=== PATIENT | female | born 1965 | race Caucasian/White ===

== ENCOUNTER 2018-03-10 12:24 | Outpatient (CLI) | payer BC | END 2018-03-10 12:25 | disposition home or self-care (01) | LOC: BICMRI 12:24 | PROVIDERS: ATTEND Psychiatry & Neurology Neurology | DX: G35 Multiple sclerosis (principal); M50.223 Other cervical disc displacement at C6-C7 level; R93.7 Abnormal findings on diagnostic imaging of other parts of musculoskeletal system; G93.9 Disorder of brain, unspecified; R90.82 White matter disease, unspecified; R60.0 Localized edema; Z98.890 Other specified postprocedural states | CPT/HCPCS: 70551; 70553; 72156; 72157 ==

== ENCOUNTER 2018-04-29 09:52 | Outpatient (CLI) | payer BC ==
--- NOTE | 2018-04-29 15:21 | CT ---
CT CERVICAL SPINE WITHOUT CONTRAST: Date: 04/29/18 HISTORY: Crushed disc on 04/26/18. Patient had surgery. Evaluate for postoperative change. COMPARISON: None. FINDINGS: There is an anterior fusion plate with transvertebral body screw at C5 and C6. No perihardware lucenc y. Disc prosthesis at C5-C6 appears to be appropriately positioned. There is mild straightening of th e normal cervical lordosis. No evidence of a cervical spine fracture. Lateral masses of C1 and C2, as well as the facets, have appropriate articulation. Intact odontoid pr ocess. Soft tissue neck structures, upper mediastinum, and lung apices are unremarkable. Limited evaluation of the contents of the central spinal canal and neural foramina due to technique. C2-C3: Central disc bulge abuts the thecal sac. No significant central canal stenosis. Foramina are patent. C3-C4: Central disc bulge abuts the thecal sac. Mild deformity of the ventral thecal sac. Mild centr al canal stenosis. Neural foramina are patent bilaterally. C4-C5: Central disc bulge abuts the thecal sac. Mild central canal stenosis. Neural foramina are pat ent bilaterally. C5-C6: Disc prosthesis. No high grade central canal stenosis. Minimal right foraminal narrowing. Lef t neural foramen is patent. C6-C7: There is an anterior osteophyte. There is a central disc bulge that deforms the thecal sac wi th moderate central canal stenosis. Neural foramina are minimally narrowed bilaterally. C7-T1: No significant central canal stenosis or foraminal narrowing. No evidence of cervical spine fracture. IMPRESSION: 1. Uncomplicated cervical fusion hardware. 2. Degenerative changes of cervical spine as above. Greatest degree of central canal stenosis at C6- C7. POS: [facility]
== END 2018-04-29 09:53 | disposition home or self-care (01) ==
LOC: TBSIIMAG 09:52
PROVIDERS: ATTEND Neurological Surgery
DX: M47.22 Other spondylosis with radiculopathy, cervical region (principal); M48.02 Spinal stenosis, cervical region; Z98.1 Arthrodesis status
CPT/HCPCS: 72125

== ENCOUNTER 2019-03-03 10:46 | Outpatient (CLI) | payer BC ==
--- NOTE | 2019-03-03 12:53 | BD ---
Exam: DEXA Bone Density 03/03/19 COMPARISON: None. HISTORY: 53-year-old postmenopausal female for screening. FINDINGS: BMD (g/cm2) T-SCORE Left femoral neck: 0.754 -0.9 Total proximal left femur: 0.939 0.0 Right femoral neck: 0.740 -1.0 Total proximal right femur: 0.880 -0.5 Impression: Normal bone mineral density. POS: [facility]
== END 2019-03-03 10:47 | disposition home or self-care (01) ==
LOC: BICMAMMO 10:46
PROVIDERS: ATTEND Internal Medicine Medical Oncology
DX: C50.919 Malignant neoplasm of unspecified site of unspecified female breast (principal); N95.9 Unspecified menopausal and perimenopausal disorder
CPT/HCPCS: 77080

== ENCOUNTER 2023-08-15 14:06 | Outpatient (CLI) | payer BC | END 2023-08-15 14:07 | disposition home or self-care (01) | LOC: EEG 14:06 | PROVIDERS: ATTEND Psychiatry & Neurology Neurology | DX: R56.9 Unspecified convulsions (principal) | CPT/HCPCS: 95816 ==